=== PATIENT | female | born 1950 | race Caucasian/White ===

== ENCOUNTER → 2016-07-29 | Outpatient (CLI) | payer MEDICARE, BC ==
--- NOTE | 2016-08-02 08:57 | MM ---
Reason for exam: additional evaluation requested from prior study. Last mammogram was performed 1 year and 1 month ago. History: Patient is postmenopausal. Silicone gel implants in both breasts, 1984. Taking estrogen for 20 years 3 months beginning at age 42. Physical Findings: Nurse did not find any significant physical abnormalities on exam. MG Diag Mamm Implants RATNA w CAD Bilateral CC, MLO, and ID view(s) were taken. Spot compression MLO and spot compression ID view(s) were taken of the right breast. Prior study comparison: July 11, 2015, bilateral MG 3d diag mammo imp w/cad RATNA. June 18, 2014, bilateral MG diagnostic mammo w CAD RATNA. April 13, 2013, CAD bilateral diagnostic mammogram. There are scattered fibroglandular densities. No significant new findings when compared with previous films. These results were verbally communicated with the patient and result sheet given to the patient on 07/29/16. ASSESSMENT: Benign, BI-RAD 2 RECOMMENDATION: Routine screening mammogram of both breasts in 1 year.
== END | disposition home or self-care (01) ==
LOC: RADMAMWWP 08:20
PROVIDERS: ATTEND Obstetrics & Gynecology
DX: R92.0 Mammographic microcalcification found on diagnostic imaging of breast (principal); Z98.82 Breast implant status

== ENCOUNTER → 2019-11-08 | Outpatient (CLI) | payer MEDICARE, BC ==
--- NOTE | 2019-11-08 13:51 | MM ---
Reason for exam: screening (asymptomatic). Last mammogram was performed 3 years and 3 months ago. History: Patient is postmenopausal. Silicone gel implants in both breasts, 1984. Taking estrogen for 20 years 3 months beginning at age 42. Physical Findings: A clinical breast exam by your physician is recommended on an annual basis and results should be correlated with mammographic findings. MG Screening Mammo Implant/CAD Bilateral CC, MLO, and ID view(s) were taken. Prior study comparison: July 29, 2016, bilateral MG diag mamm implants RATNA w CAD. July 11, 2015, bilateral MG 3d diag mammo imp w/cad RATNA. The breast tissue is heterogeneously dense. This may lower the sensitivity of mammography. There is chronic nodularity bilaterally. Intact implants. No significant changes when compared with prior studies. ASSESSMENT: Benign, BI-RAD 2 RECOMMENDATION: Routine screening mammogram of both breasts in 1 year.
== END | disposition home or self-care (01) ==
LOC: RADMAMWWP 09:30
PROVIDERS: ATTEND Family Medicine
DX: Z12.31 Encounter for screening mammogram for malignant neoplasm of breast (principal)
CPT/HCPCS: 77067

== ENCOUNTER → 2019-12-28 | Outpatient (CLI) | payer MEDICARE, BC ==
--- NOTE | 2020-01-01 20:59 | PE ---
EXAMINATION TYPE: PET CT fusion skull to thigh DATE OF EXAM: 12/28/2019 COMPARISON: None Prior PET/CT: None HISTORY: Solitary pulmonary nodule TECHNIQUE: Following the intravenous administration of 10.577 mCi of F-18 FDG, whole body images are performed from the skull base to the midthigh. Images are reviewed on the computer in the coronal, axial, and sagittal planes. Reconstructed rotating images are created on independent workstation and reviewed on the computer. A localization and attenuation correction CT is performed in conjunction with the PET scan. SCAN: Initial Scan Blood glucose: 91 mg/dL FINDINGS: NECK: No suspicious hypermetabolic activity. THORAX: There is a 1.1 x 1.06 cm spiculated right perihilar pulmonary nodule with hypermetabolic acti vity. There is 9 mm hypermetabolic right hilar lymphadenopathy. ABDOMEN/PELVIS: No suspicious hypermetabolic activity. OSSEOUS STRUCTURES: No suspicious hypermetabolic activity. LOCALIZATION CT: Calcified coronary artery disease. Too small to characterize hypodense lesions of th e liver with no metabolic activity. Infrarenal abdominal aortic ectasia measures up to 1.7 cm. IMPRESSION: 1. Hypermetabolic 1.1 cm spiculated right perihilar pulmonary nodule likely represents malignancy. 2. Hypermetabolic 0.9 cm right perihilar lymphadenopathy likely represents metastatic disease. 3. No evidence of metastatic disease within the neck, abdomen, or pelvis.
== END | disposition home or self-care (01) ==
LOC: RADPETMAIN 13:26
PROVIDERS: ATTEND Nurse Practitioner Family
DX: R59.1 Generalized enlarged lymph nodes (principal); R91.1 Solitary pulmonary nodule
CPT/HCPCS: 78815; A9552

== ENCOUNTER → 2020-09-17 | Outpatient (CLI) | payer MEDICARE ==
--- NOTE | 2020-09-17 14:22 | CT ---
EXAMINATION TYPE: CT soft tissue neck w con DATE OF EXAM: 09/17/2020 COMPARISON: PET/CT 12/28/2019 HISTORY: 70-year-old female R22.1 Right Neck Mass, R49.0 hoarseness. TECHNIQUE: Contiguous axial scanning of the soft tissues of the neck performed with IV Contrast, carolin ent injected with 100 mL of Isovue M300. Coronal and sagittal reconstructions performed. CT DLP: 348.4 mGycm Automated exposure control for dose reduction was used. FINDINGS: Moderately advanced emphysema in the visualized upper lungs. Biapical pleural parenchymal scarring. Visualized intracranial structures, orbits and globes, paranasal sinuses, mastoid air cells appear cl ear. Nasopharynx and oropharynx appear clear. Epiglottis and prevertebral soft tissues appear satisfactory. There is abnormal asymmetric thickening along the left aryepiglottic fold and left piriform sinus ext ending to the superior aspect of the left arytenoid uterus. Some asymmetric leftward deviation of the larynx just below. Refer to axial images 46 through 43. The parotid, submandibular, and thyroid glands appear satisfactory. No cervical lymphadenopathy identified. Moderate degenerative disc disease C5-C6. Facet arthropathy. Upper to mid cervical spine. IMPRESSION: 1. ASYMMETRIC SOFT TISSUE THICKENING INVOLVING THE LEFT ARYEPIGLOTTIC FOLD, LEFT PIRIFORM SINUS, AND EXTENDING TO THE SUPERIOR ASPECT OF THE LEFT ARYTENOID CARTILAGE. DIRECT VISUALIZATION RECOMMENDED TO EXCLUDE NEOPLASM. 2. NO CERVICAL LYMPHADENOPATHY IDENTIFIED. 3. COPD WITH MODERATE TO ADVANCED EMPHYSEMA.
== END | disposition home or self-care (01) ==
LOC: RADCTMAIN 11:31
PROVIDERS: ATTEND Otolaryngology
DX: R22.1 Localized swelling, mass and lump, neck (principal); J44.9 Chronic obstructive pulmonary disease, unspecified; J43.9 Emphysema, unspecified
CPT/HCPCS: 82565; 84520; 70491; 36415; Q9967

== ENCOUNTER → 2023-09-16 | Day surgery (SDC) | payer MEDICARE ==
--- NOTE | 2023-09-23 13:36 | MM ---
Reason for Exam: Post Procedure Mammogram. Last mammogram was performed 3 year(s) and 10 month(s) ago. Patient History: Menarche at age 12. First Full-Term at age 18. Left ovary removed at age 42. Right ovary removed at age 42. Hysterectomy at age 42. Postmenopausal. Patient has history of breast feeding. Currently using Estrogen, beginning at age 42 for 20 years, 3 months. 1984, Bilateral Implants. Risk Values: Opal 5 year model risk: 1.3%. NCI Lifetime model risk: 3.1%. Prior Study Comparison: 07/11/2015 Bilateral Diagnostic Mammogram, [facility]. 07/29/2016 Bilateral Diagnostic Mammogram, [facility]. 11/08/2019 Bilateral Screening Mammogram, [facility]. Tissue Density: Right: The breasts are heterogeneously dense, which may obscure small masses. Pathology Description: Location: 11 o'clock. Marker Left Behind. Needle Type: Mammotome Cores: 5 Skin Nicks: 1 The procedure of ultrasound guided core biopsy was explained to the patient. Benefits, alternatives, and risks were discussed. An informed consent was then obtained. The isoechoic round solid nodule at the 7:00 position, 5 cm from the nipple measuring 6 mm is identified and targeted for biopsy. The patient was placed in supine positioning for imaging and for the procedure. The overlying skin was prepped and draped in usual sterile fashion. Lidocaine was used as anesthetic into the skin and subcutaneous tissue up to area of concern in the 7:00 right breast. Under ultrasound guidance, a 13-gauge vacuum-assisted mammotome Elite biopsy gun device was used to obtain 5 core samples. Following this, a butterfly clip was left in lesion. The patient tolerated the procedure well without any immediate complication. The patient was kept in the radiology department for short stay after the procedure and then discharged home in stable condition. Postprocedure mammogram: The patient was transferred to mammography for physician ordered post procedure mammogram for clip placement verification. Post procedure mammogram shows butterfly clip inferiorly in the breast at the site of previous mammographic nodule. IMPRESSION: Successful, uncomplicated ultrasound guided core biopsy of area of circumscribed isoechoic solid area 7:00 right breast, mammographic correlate. Full pathology results to follow. Pathology Results: Result: Benign, Fibroadenoma. Pathology and radiology were reviewed. Findings are concordant. RIGHT BREAST, ELEVEN O'CLOCK, ULTRASOUND GUIDED NEEDLE CORE BIOPSY: Fibroadenoma/fibroadenomatoid hyperplasia and background fibrocystic changes. Negative for malignancy. Overall Assessment: Benign Assessment: MG diagnostic mammo RT wo CAD - Right: Benign, BI-RAD 2. Management: Diagnostic Mammogram of the right breast in 6 months. Electronically signed and approved by: Mar Stark M.D. Radiologist
== END ==
LOC: RADUSWWP 09:56
PROVIDERS: ATTEND Surgery
DX: D24.1 Benign neoplasm of right breast (principal); N62 Hypertrophy of breast; R92.8 Other abnormal and inconclusive findings on diagnostic imaging of breast; Z78.0 Asymptomatic menopausal state; Z90.721 Acquired absence of ovaries, unilateral
CPT/HCPCS: 88305; 77065; 19083; A4648

== ENCOUNTER → 2023-09-22 | Outpatient (CLI) | payer MEDICARE ==
--- NOTE | 2023-09-22 12:21 | P.GSCN ---
History of Present Illness Consult date: 09/22/23 Reason for Consult: ultrasound guided biopsy/ fibroadenoma Requesting physician: Delores Elliott History of present illness: Anais is a 73 year old female seen in consultation for Bhupinder Avila regarding a radiographic abnormality in the right breast. She had a bilateral mammogram on 09-12-23 which led to a right brease ultrasound. This was done on 09-12-23 and showed a .6 by .4 cm lesion and core biopsy recommended. This was done on 09-16-23 and showed a fibroadenoma. This was found on a routine mammogram. The patient did not feel anything of concern. She had bilateral implants placed about 1983. She has not ahd any other surgery on her breast. She is not complaining of any nipple discharge or skin changes. She has not had any recent trauma or infection in the breast. Radiographs were personally reviewed. Caffeine: 2-3 cups/day nicotine: smoked 1 PPD for 40 years/ stopped 10 years ago chocolate: occasional BCP: used for about 10 years hormones: estrace used from 1993 until 2021 Family History: mother: colon cancer brother: throat cancer smoker father: skin cancer Hormonal History: menarche: 14 , breast fed: yes, age at first : 18 hysterectomy at 44, done for cramps and bleeding, no cancer, took both ovaries BCP: 10 years estrace for 28 years Surgical History: Hysterectomy with removal of ovaries no cancer right toe Medical History: COPD high cholesterol HTN Social History: nicotine: as above alcohol: most week ends, 5-6 beer drugs: none Review of Systems - Constitutional Reports sweats - EENT Eyes: denies blurred vision Ears: deny: decreased hearing, tinnitus Ears, nose, mouth and throat: Denies dysphagia - Breasts bilateral: as per HPI - Cardiovascular Reports shortness of breath, Denies chest pain - Respiratory Respiratory Comment(s): COPD - Gastrointestinal Reports as per HPI - Genitourinary Genitourinary: Denies dysuria, Denies hematuria Menstruation: Reports post hysterectomy - Musculoskeletal Reports as per HPI - Integumentary Denies rash, Denies unusual bruising - Neurological Denies headaches, Denies syncope - Psychiatric Reports as per HPI - Endocrine Reports as per HPI - Hematologic/Lymphatic Reports as per HPI - Allergic/Immunologic Reports seasonal allergies Past Medical History Past Medical History: COPD, Hyperlipidemia, Hypertension Additional Past Medical History / Comment(s): 2013 chest for pneunothorax History of Any Multi-Drug Resistant Organisms: None Reported Past Surgical History: Hysterectomy Past Psychological History: Anxiety Smoking Status: Former smoker Past Alcohol Use History: Occasional Additional Past Alcohol Use History / Comment(s): quit smoking 2023 Past Drug Use History: None Reported Medications and Allergies Home Medications Medication Instructions Recorded Confirmed Type Atorvastatin [Lipitor] 20 mg PO DAILY 09/14/23 09/22/23 History Ferrous Sulfate [Feosol] 325 mg PO DAILY 09/14/23 09/22/23 History Fluticasone/Umeclidin/Vilanter 1 inhalation INHALATION DAILY 09/14/23 09/22/23 History [Trelegy Ellipta 100-62.5-25] Omeprazole [PriLOSEC] 20 mg PO AC-BID 09/14/23 09/22/23 History Venlafaxine HCl [Effexor XR] 75 mg PO DAILY 09/14/23 09/22/23 History lisinopriL 30 mg PO DAILY 09/14/23 09/22/23 History Allergies Allergy/AdvReac Type Severity Reaction Status Date / Time Sulfa (Sulfonamide Allergy Rash/Hives Verified 09/22/23 11:59 Antibiotics) Surgical - Exam - General no distress - Eyes normal ocular movement - Neck trachea midline - Respiratory normal respiratory effort, clear to auscultation - Cardiovascular Rhythm: regular Heart Sounds: normal: S1, S2 - Abdomen Abdomen: soft, non tender, no guarding, no rigid, no rebound - Integumentary normal turgor - Neurologic no disoriented, no combative - Musculoskeletal normal gait - Psychiatric oriented to time, oriented to person, oriented to place, speech is normal, memory intact Breast Exam: BRA: 36C inspection: Bilateral grade 2 ptosis Mild ecchymosis right breast at biopsy site no evidence of infection or hematoma Palpation: Right breast: Multi positional exam fibrocystic changes, implant in place, well- healed scar from placement of implant no evidence of any dominant masses or nodules of concern, mild ecchymosis at biopsy site Right axilla: No adenopathy of concern left breast: Multi positional exam fibrocystic changes, implant in place, well- healed scar from placement of implant, no dominant masses or nodules of concern Left axilla: No adenopathy of concern Results Ultrasound core biopsy positive for fibroadenoma of the right breast/this is believed to be benign concordant Assessment and Plan Assessment: Impression: Biopsy concordant fibroadenoma right breast Fibrocystic breast changes Bilateral breast implants radiographs personally reviewed Plan: Repeat right breast mammogram in 6 months with physician exam at that time Patient to follow-up sooner any questions or concerns CC: Delores Elliott
[2023-09-22 13:09] VITALS: BP 154/83; PULSE 91; RESP 17; TEMP 98.3
== END ==
LOC: WWCWWP 11:09
PROVIDERS: ATTEND Surgery
DX: R92.8 Other abnormal and inconclusive findings on diagnostic imaging of breast (principal); D24.1 Benign neoplasm of right breast; N60.11 Diffuse cystic mastopathy of right breast; N60.12 Diffuse cystic mastopathy of left breast; Z98.82 Breast implant status; Z87.891 Personal history of nicotine dependence; Z88.2 Allergy status to sulfonamides

== ENCOUNTER → 2024-03-26 | Outpatient (CLI) | payer MEDICARE ==
--- NOTE | 2024-03-26 13:56 | MM ---
Reason for Exam: Follow-up at short interval from prior study. Last mammogram was performed 4 year(s) and 4 month(s) ago. Patient History: Menarche at age 12. First Full-Term at age 18. Left ovary removed at age 42. Right ovary removed at age 42. Hysterectomy at age 42. Postmenopausal. Patient has history of breast feeding. Currently using Estrogen, beginning at age 42 for 20 years, 3 months. 09/16/2023, Benign US biopsy breast VAD RT on the right side. 1984, Bilateral Implants. Risk Values: Opal 5 year model risk: 1.5%. NCI Lifetime model risk: 3.5%. Tissue Density: The breasts are heterogeneously dense, which may obscure small masses. Findings: Bilateral prepectoral silicone implants are redemonstrated. Benign oil cyst calcifications on the right. Microclip central right breast middle depth from biopsy 6 months ago. No increasing/enlarging nodularity is identified. No other discrete abnormality is seen. Overall Assessment: Benign, BI-RAD 2 Management: Screening Mammogram of both breasts in 1 year. Results were given to the patient verbally at the time of exam. Patient should continue monthly self-breast exams. A clinical breast exam by your physician is recommended on an annual basis. This exam should not preclude additional follow-up of suspicious palpable abnormalities. Note on Opal scores and lifetime risk: 1. A Opal score greater than 3% is considered moderate risk. If this is the case, consider specialist referral to assess eligibility for a risk reducing agent. 2. If overall lifetime risk for the development of breast cancer is 20% or higher, the patient may qualify for future screening with alternating mammogram and breast MRI. [facility], , 03/26/2024 1:53 PM. Electronically signed and approved by: Mar Stark M.D. Radiologist
== END | disposition home or self-care (01) ==
LOC: RADMAMWWP 13:20
PROVIDERS: ATTEND Surgery
DX: R92.8 Other abnormal and inconclusive findings on diagnostic imaging of breast (principal); Z90.722 Acquired absence of ovaries, bilateral; Z78.0 Asymptomatic menopausal state; Z98.82 Breast implant status; R92.333 Mammographic heterogeneous density, bilateral breasts
CPT/HCPCS: 77066; G0279; 77062